=== PATIENT | female | born 1965 | race Hispanic/Latino ===

== ENCOUNTER 2018-09-02 10:41 | Outpatient (CLI) | payer OTHER | END 2018-09-02 10:42 | disposition home or self-care (01) | LOC: LAB 10:41 | DX: E03.9 Hypothyroidism, unspecified (principal); E66.9 Obesity, unspecified; R73.03 Prediabetes ==

== ENCOUNTER 2018-09-16 10:34 | Outpatient (CLI) | payer OTHER | END 2018-09-16 10:35 | disposition home or self-care (01) | LOC: LAB 10:34 ==

== ENCOUNTER 2018-11-08 19:53 | Emergency (ER) | payer OTHER ==
[2018-11-08 20:00] VITALS: BMI 33.3
[2018-11-08 20:15] VITALS: BP 141/84; PULSE 85; RESP 18; TEMP 98.1; O2SAT 98
--- NOTE | 2018-11-08 21:25 | ED PDOC ---
Arrival/HPI - General Chief Complaint: Upper Extremity Problem/Injury Time Seen by Provider: 11/08/18 19:57 Historian: Patient - History of Present Illness Narrative History of Present Illness (Text): 11/08/18 21:25 Lyudmila Light is a 53 year old female, whose past medical history include multiple sclerosis, who presents to the ED complaining of left-sided neck discomfort. Patient states she may have positioned herself awkwardly, but is unsure. Patient states discomfort is reproducible with movement. Patient denies any numbness/tingling in the arm, fever, chest pain, shortness of breath, or any other complaints. Symptom Onset: Gradual Symptom Course: Unchanged Activities at Onset: Light Context: Home Past Medical History - Provider Review Nursing Documentation Reviewed: Yes - Cardiac Hx Cardiac Disorders: No Hx Pacemaker: No - Pulmonary Hx Respiratory Disorders: No - Neurological Hx Neurological Disorder: Yes Hx Multiple Sclerosis: Yes Hx Paralysis: No - HEENT Hx HEENT Disorder: No - Renal Hx Renal Disorder: No - Endocrine/Metabolic Hx Endocrine Disorders: Yes Hx Hypothyroidism: Yes - Hematological/Oncological Hx Blood Transfusions: No - Integumentary Hx Dermatological Disorder: No - Musculoskeletal/Rheumatological Hx Musculoskeletal Disorders: No - Gastrointestinal Hx Gastrointestinal Disorders: No - Genitourinary/Gynecological Hx Genitourinary Disorders: No - Psychiatric Hx Psychophysiologic Disorder: No Hx Emotional Abuse: No Hx Physical Abuse: No Hx Substance Use: No - Anesthesia Hx Anesthesia Reactions: No Hx Malignant Hyperthermia: No - Suicidal Assessment Feels Threatened In Home Enviroment: No Family/Social History - Physician Review Nursing Documentation Reviewed: Yes Family/Social History: Unknown Family HX Smoking Status: Never Smoked Hx Alcohol Use: No Hx Substance Use: No Allergies/Home Meds Allergies/Adverse Reactions: Allergies No Known Allergies Allergy (Verified 11/08/18 20:00) Home Medications: Home Meds Medication Instructions Recorded Confirmed Glatiramer Acetate [Copaxone] 40 mg SC MWF 06/08/14 08/13/16 Levothyroxine Sodium 200 mcg PO DAILY 06/08/14 08/13/16 [Levothyroxine] Pramipexole [Mirapex] 0.5 mg PO DAILY 06/08/14 08/13/16 Gabapentin [Neurontin] 300 mg PO DAILY 08/13/16 08/13/16 Review of Systems - Physician Review All systems were reviewed & negative as marked: Yes - Review of Systems Constitutional: Normal. absent: Fevers Eyes: Normal ENT: Normal Respiratory: Normal. absent: SOB, Cough Cardiovascular: Normal. absent: Chest Pain Gastrointestinal: Normal. absent: Abdominal Pain, Diarrhea, Nausea, Vomiting Genitourinary Female: Normal. absent: Dysuria, Frequency, Hematuria, Urine Output Changes Musculoskeletal: Neck Pain. absent: Back Pain Skin: Normal. absent: Rash Neurological: Normal. absent: Headache, Dizziness Endocrine: Normal Hemo/Lymphatic: Normal Psychiatric: Normal Physical Exam Vital Signs Reviewed: Yes Vital Signs Temp Pulse Resp BP Pulse Ox 11/08/18 20:11 98.1 F 85 18 141/84 98 Temperature: Afebrile Blood Pressure: Normal Pulse: Regular Respiratory Rate: Normal Appearance: Positive for: Well-Appearing, Non-Toxic, Comfortable Pain Distress: None Mental Status: Positive for: Alert and Oriented X 3 - Systems Exam Head: Present: Atraumatic, Normocephalic Pupils: Present: PERRL Extroacular Muscles: Present: EOMI Conjunctiva: Present: Normal Mouth: Present: Moist Mucous Membranes Neck: Present: Paraspinal Tenderness (Mild left-sided paracervical muscle tenderness and spasm). No: Meningeal Signs, MIDLINE TENDERNESS Respiratory/Chest: Present: Clear to Auscultation, Good Air Exchange. No: Respiratory Distress, Accessory Muscle Use Cardiovascular: Present: Regular Rate and Rhythm, Normal S1, S2. No: Murmurs Abdomen: No: Tenderness, Distention, Peritoneal Signs Back: Present: Normal Inspection Upper Extremity: Present: Normal Inspection. No: Cyanosis, Edema Lower Extremity: Present: Normal Inspection. No: Edema Neurological: Present: GCS=15, CN II-XII Intact, Speech Normal Skin: Present: Warm, Dry, Normal Color. No: Rashes Psychiatric: Present: Alert, Oriented x 3, Normal Insight, Normal Concentration Medical Decision Making ED Course and Treatment: 11/08/18 21:00 Impression: 53 year old female complaining of left-sided neck discomfort. Plan: -- Flexeril -- Toradol -- XR Cervical Spine -- Reassess and disposition Prior Visits: Notes and results from previous visits were reviewed. Progress Notes: XR Cervical Spine reviewed, shows no acute processes. 11/08/18 21:25 On reevaluation the patient feels better and is in no acute distress. Patient is stable for discharge. Patient was instructed to follow up with physician/clinic in 1-2 days or return if symptoms persist/worsen or new concerning symptoms arise. - RAD Interpretation Radiology Orders: 11/08/18 20:16 CERVICAL SPINE >18YR W/OBLIQUE [RAD] Stat Sports Activities Foul Judge: ED Physician - Medication Orders Current Medication Orders: Discontinued Medications Cyclobenzaprine HCl (Flexeril) 10 mg PO ONCE ONE Stop: 11/08/18 20:16 Last Admin: 11/08/18 20:32 Dose: 10 mg Ketorolac Tromethamine (Toradol) 60 mg IM ONCE ONE Stop: 11/08/18 20:16 Last Admin: 11/08/18 20:32 Dose: 60 mg MAR Pain Assessment Document 11/08/18 20:32 EB (Rec: 11/08/18 20:33 EB [id number]) Pain Reassessment Is this a pain reassessment? No Sleep Is patient sleeping during reassessment? No Presence of Pain Presence of Pain Yes Pain Scale Used Protocol: PSCALES Pain Scale Used Numeric Location Pain Location Body Site Neck Description Description Sharp Intensity of Pain at present 7 Pain Behavior Moaning Facial Grimacing IM Administration Charges Document 11/08/18 20:32 EB (Rec: 11/08/18 20:33 EB [id number]) Injection Site MAR Injection Site Left Deltoid Charges for Administration # of IM Administrations 1 - Scribe Statement The provider has reviewed the documentation as recorded by the Deb Fong Provider Scribe Attestation: All medical record entries made by the Scribe were at my direction and personally dictated by me. I have reviewed the chart and agree that the record accurately reflects my personal performance of the history, physical exam, medical decision making, and the department course for this patient. I have also personally directed, reviewed, and agree with the discharge instructions and disposition. Disposition/Present on Arrival - Present on Arrival Any Indicators Present on Arrival: No History of DVT/PE: No History of Uncontrolled Diabetes: No Urinary Catheter: No History of Decub. Ulcer: No History Surgical Site Infection Following: None - Disposition Have Diagnosis and Disposition been Completed?: Yes Diagnosis: Cervical muscle strain, Muscle spasm Disposition: HOME/ ROUTINE Disposition Time: 21:26 Condition: STABLE Discharge Instructions (ExitCare): Muscle Spasms (DC), Cervical Muscle Strain (DC) Additional Instructions: Take meds as prescribed/follow up with your doctor this week Prescriptions: Cyclobenzaprine [Cyclobenzaprine HCl] 10 mg PO TID PRN #15 tab PRN Reason: Muscle Spasm Naproxen [Naprosyn] 500 mg PO BID PRN #14 tab PRN Reason: Pain Referrals: PCP,NO [Primary Care Provider] - Follow up with primary Forms: [facility] (Polish), WORK NOTE
--- NOTE | 2018-11-09 10:49 | RAD ---
Date of service: 11/08/2018 PROCEDURE: Cervical Spine Radiographs. HISTORY: Pain. COMPARISON: None available. TECHNIQUE: 3 views obtained. FINDINGS: BONES: Alignment maintained. No fracture. Dens Intact. DISC SPACES: Multilevel disc and facet degeneration. Anterior osteophytes SOFT TISSUES: Normal. No prevertebral soft tissue swelling. OTHER FINDINGS: None. IMPRESSION: Multilevel disc and facet degeneration. Anterior osteophytes
== END 2018-11-08 21:40 | disposition home or self-care (01) ==
LOC: ED 19:53
DX: S16.1XXA Strain of muscle, fascia and tendon at neck level, initial encounter (principal); X58.XXXA Exposure to other specified factors, initial encounter; M62.838 Other muscle spasm; G35 Multiple sclerosis; E03.9 Hypothyroidism, unspecified
CPT/HCPCS: 72050; 81025; 96372; 99283; J1885